=== PATIENT | female | born 1960 | race Caucasian/White ===

== ENCOUNTER 2017-11-12 20:08 | Emergency (ER) | payer OTHER ==
[~2017-11-12] VITALS: Ht 167.6 cm; Wt 90.7 kg
--- NOTE | 2017-11-12 20:23 | NUR ---
PT BIBSELF C/O ALLERGIC REACTION; TONGUE SWELLING/REDNESS AND RASH ON BODY. PT AOX3 RR EVEN AND UNLABORED. NO SOB NOTED. NVD AT THIS TIME. PT GOWNED AND PLACED ON MONITOR WAITING FOR MD LUU.
--- NOTE | 2017-11-12 20:25 | NUR ---
FAMILY AT BEDSIDE FOR EVAL.
[2017-11-12] MEDS ORDERED: methylPREDNISolone SOD SUCC 125 MG/2ML VIAL ONE (20:29)
[2017-11-12] MEDS ORDERED: diphenhydrAMINE HCL 50 MG/ML VIAL ONE (20:29)
[2017-11-12] MEDS ORDERED: methylPREDNISolone SOD SUCC 125 MG/2ML VIAL IV ONE (20:30)
[2017-11-12] MEDS ORDERED: diphenhydrAMINE HCL 50 MG/ML VIAL IV ONE (20:30)
--- NOTE | 2017-11-12 21:29 | NUR ---
REDNESS THROUGHOUT BODY NOTED IMPROVED. PT STATES "I FEEL BETTER"
--- NOTE | 2017-11-12 21:48 | NUR ---
IV removed. Catheter intact and site benign. Pressure and 4x4 applied to site. No bleeding noted. Patient discharged to home in stable condition. Written and verbal after care instructions given. Patient verbalizes understanding of instruction. ambulatory with a steady gait
[2017-11-12 21:49] VITALS: BP 132/68
== END 2017-11-12 21:52 | disposition home or self-care (01) ==
LOC: ER 20:09
DX: T78.49XA Other allergy, initial encounter (principal); E11.9 Type 2 diabetes mellitus without complications; Z88.0 Allergy status to penicillin; Z88.2 Allergy status to sulfonamides; X58.XXXA Exposure to other specified factors, initial encounter
CPT/HCPCS: A4606; J1200; J2930; Z7610